=== PATIENT | male | born 2005 | race Caucasian/White ===

== ENCOUNTER 2024-10-12 14:47 | Emergency (ER) | payer BC, SELFPAY ==
[2024-10-12 14:51] VITALS: BP 164/86; PULSE 88; O2SAT 95
[2024-10-12 14:53] VITALS: BP 119/64; PULSE 87; RESP 19; TEMP 36.6; O2SAT 98; BMI 28.8
--- NOTE | 2024-10-12 15:20 | ED_ITS ---
HPI - Allergic Reaction General Chief complaint: General Medical Stated complaint: ALLERGIC REACTION,? 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 He feels much better. He still has an epi pen to use at facility. MD complaint: allergic reaction Onset (ago): minute(s) ([employer]) Exposure: food Symptoms: itching, nausea and vomiting Severity: moderate Treatment prior to arrival: benadryl and epinephrine Previous Allergic Reaction History: prior ED visit(s) and anaphylaxis Related Data Previous Rx's ?Medication ?Instructions ?Recorded epinephrine 0.3 mg/0.3 mL 0.3 mg (0.3 mL) IM Q10M PRN 10/12/24 injection, auto-injector anaphylaxis #2 ea Allergies Allergy/AdvReac Type Severity Reaction Status Date / Time egg Allergy Unknown Verified 10/12/24 14:57 Milk Containing Products Allergy Unknown Verified 10/12/24 14:57 (Dairy) nut - unspecified Allergy Unknown Verified 10/12/24 14:57 shellfish derived Allergy Unknown Verified 10/12/24 14:57 Review of Systems Review of Systems: Constitutional : No Fever, No Chills ENT/Mouth : no oral swelling, pos Hoarseness, No Swallowing Difficulty Eyes: No Eye Pain, No Swelling, No Redness Cardiovascular : No Chest Pain, No SOB Respiratory : No Cough, No Sputum, No Wheezing, No Smoke Exposure, No Dyspnea Gastrointestinal : pos Nausea, pos Vomiting, No Diarrhea, No abdominal Pain Genitourinary : No Dysuria, No Urinary Frequency, No Hematuria Musculoskeletal : No joint pain, No Myalgias, No Joint Swelling Skin : No Skin Lesions, positive rash Neuro : No Weakness, No Numbness, No Headache Psych : No Anxiety/Panic, No Depression All other systems reviewed and are negative [facility] Past Medical History Attestation statement: The following information was validated with the patient. Source: old records reviewed Medical History (Updated 10/12/24 @ 15:39 by Oumou Ritu, DO) Anaphylaxis Eczema Social History Social History (Updated 10/12/24 @ 15:34 by Oumou Chaney DO) Patient Tobacco Use Status: Never used Tobacco Physical Exam ED Vital Signs: Vital Signs - 24 hr 10/12/24 14:53 Temperature 98 F Pulse Rate 87 Respiratory Rate 19 Blood Pressure 119/64 Pulse Oximetry 98 BMI result Body Mass Index 28.8 Appearance: Alert. Oriented X3. No acute distress. Eyes: Pupils equal, round and reactive to light. ENT: Pharynx normal. dry patches along face that is scaly no angioedema Neck: Normal inspection. Neck supple. CVS: Normal heart rate and rhythm. Pulses normal. Respiratory: No respiratory distress. Breath sounds normal. Abdomen: Soft and nontender. Skin: Skin warm and dry. Normal skin color. Normal skin turgor. Extremities: No lower extremity edema. Neuro: Oriented X 3. No motor deficit. No sensory deficit. 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 At this time add on steroids, pepcid and monitor for 2 hour for recurrence, no signs of angioedema Differential Diagnosis Differential Diagnoses: The differential diagnosis associated with the presentation includes anaphylaxis Admission/Observation Consideration of admission/observation: Escalation of care including admission/observation considered no return of symptoms at 2 hours DC with epi pen Discharge Plan Discharge Clinical Impression: Anaphylaxis Qualifiers: Encounter type: initial encounter Qualified Code(s): T78.2XXA - Anaphylactic shock, unspecified, initial encounter Patient Disposition: Home, Self-Care Instructions: Anaphylaxis (ED) Additional Instructions: return for worsening symptoms or concerns carry epi pen return for any allergy symptoms Prescriptions: New epinephrine 0.3 mg/0.3 mL auto-injector 0.3 mg IM Q10M PRN (Reason: anaphylaxis) Qty: 2 0RF Rx Instructions: for 2 doses Print Language: Vincentian
[2024-10-12] MEDS: Famotidine/PF 20 MG/2 ML VIAL IVPUSH (15:35)
[2024-10-12] MEDS: methylPREDNISolone Sod Succ 125 MG/2 ML VIAL IVPUSH (15:35)
[2024-10-12 16:45] VITALS: BP 115/74; PULSE 92; RESP 16; TEMP 36.9; O2SAT 96
[2024-10-12 17:00] VITALS: BP 115/74; PULSE 92; RESP 16; TEMP 36.9; O2SAT 96
== END 2024-10-12 17:01 | disposition home or self-care (01) ==
PROVIDERS: Emergency Provider Emergency Medicine; PCP Pediatrics Adolescent Medicine
DX: T78.00XA Anaphylactic reaction due to unspecified food, initial encounter (principal); Y99.9 Unspecified external cause status; R10.9 Unspecified abdominal pain; R11.10 Vomiting, unspecified
CPT/HCPCS: 96374; 96375; 99284; J2919